=== PATIENT | female | born 1965 | race Caucasian/White ===

== ENCOUNTER 2016-12-05 16:04 | Emergency (ER) | payer BC ==
--- NOTE | 2016-12-05 16:56 | ED.ADGEN ---
Past Medical History Past Medical History: GERD Past Surgical History: Tonsillectomy Alcohol Use: Occasionally Drug Use: None Adult General Chief Complaint Chief Complaint: DIZZY/LIGHT HEADED HPI HPI Patient is a 51 year old female presents emergency department with sudden onset dizziness one hour prior to arrival. Patient reports that the symptoms are worse when she moves her head and essentially resolved when she holds still. She denies any nausea or vomiting. Denies any chest pain or headache. Denies any visual starts. Patient states that she did notice some "tingling" and bilateral hands and in her face shortly after this started. Patient denies any other past medical history. Review of Systems Review of Systems Constitutional: Denies fever or chills. [] Eyes: Denies change in visual acuity. [] HENT: Denies nasal congestion or sore throat. [] Respiratory: Denies cough or shortness of breath. [] Cardiovascular: Denies chest pain or edema. [] GI: Denies abdominal pain, nausea, vomiting, bloody stools or diarrhea. [] : Denies dysuria. [] Musculoskeletal: Denies back pain or joint pain. [] Integument: Denies rash. [] Neurologic: Denies headache, focal weakness or sensory changes. [] Endocrine: Denies polyuria or polydipsia. [] Lymphatic: Denies swollen glands. [] Psychiatric: Denies depression or anxiety. [] Current Medications Current Medications Current Medications Medications (Trade) Dose Ordered Sig/Jsohua Start Time Stop Time Status Last Admin Dose Admin Meclizine HCl (Antivert) 25 mg 1X ONCE 12/05/16 17:15 12/05/16 17:16 DC 12/05/16 17:20 25 MG Sodium Chloride (Iv Sodium Chloride 0.9% 1000ml Bag) 1,000 ml @ 1,000 mls/hr Q1H 12/05/16 17:30 12/05/16 18:29 12/05/16 17:20 1,000 MLS/HR Allergies Allergies Allergies Coded Allergies Type Severity Reaction Last Updated Verified No Known Drug Allergies 12/05/16 No Physical Exam Physical Exam Constitutional: Well developed, well nourished, no acute distress, non-toxic appearance. [] HENT: Normocephalic, atraumatic, bilateral external ears normal, oropharynx moist, no oral exudates, nose normal. [] Eyes: PERRLA, EOMI, conjunctiva normal, no discharge. [] Neck: Normal range of motion, no tenderness, supple, no stridor. [] Cardiovascular:Heart rate regular rhythm, no murmur [] Lungs & Thorax: Bilateral breath sounds clear to auscultation [] Abdomen: Bowel sounds normal, soft, no tenderness, no masses, no pulsatile masses. [] Skin: Warm, dry, no erythema, no rash. [] Back: No tenderness, no CVA tenderness. [] Extremities: No tenderness, no cyanosis, no clubbing, ROM intact, no edema. [] Neurologic: Alert and oriented X 3, normal motor function, normal sensory function, no focal deficits noted. [] Psychologic: Affect normal, judgement normal, mood normal. [] Current Patient Data Vital Signs Vital Signs Date Time Temp Pulse Resp B/P Pulse Ox O2 Delivery O2 Flow Rate FiO2 12/05/16 17:27 119/76 Room Air 12/05/16 16:52 60 13 98 12/05/16 16:09 97.9 97.9 Lab Values Laboratory Tests Test 12/05/16 16:45 12/05/16 17:10 Glucose (Fingerstick) 84mg/dL (70-99) White Blood Count 6.1x10^3/uL (4.0-11.0) Red Blood Count 4.76x10^6/uL (3.50-5.40) Hemoglobin 13.8g/dL (12.0-15.5) Hematocrit 41.1% (36.0-47.0) Mean Corpuscular Volume 86fL (79-100) Mean Corpuscular Hemoglobin 29pg (25-35) Mean Corpuscular Hemoglobin Concent 34g/dL (31-37) Red Cell Distribution Width 13.5% (11.5-14.5) Platelet Count 291x10^3/uL (140-400) Neutrophils (%) (Auto) 53% (31-73) Lymphocytes (%) (Auto) 34% (24-48) Monocytes (%) (Auto) 10% (0-9) H Eosinophils (%) (Auto) 3% (0-3) Basophils (%) (Auto) 1% (0-3) Neutrophils # (Auto) 3.2x10^3uL (1.8-7.7) Lymphocytes # (Auto) 2.1x10^3/uL (1.0-4.8) Monocytes # (Auto) 0.6x10^3/uL (0.0-1.1) Eosinophils # (Auto) 0.2x10^3/uL (0.0-0.7) Basophils # (Auto) 0.0x10^3/uL (0.0-0.2) Urine Collection Type Unknown Urine Color Straw Urine Clarity Clear Urine pH 6.5 Urine Specific [place] <=1.005 Urine Protein Negativemg/dL (NEG-TRACE) Urine Glucose (UA) Negativemg/dL (NEG) Urine Ketones (Stick) Negativemg/dL (NEG) Urine Blood Negative (NEG) Urine Nitrite Negative (NEG) Urine Bilirubin Negative (NEG) Urine Urobilinogen Dipstick 0.2mg/dL (0.2 mg/dL) Urine Leukocyte Esterase Small (NEG) Urine RBC 0/HPF (0-2) Urine WBC Occ/HPF (0-4) Urine Squamous Epithelial Cells Many/LPF Urine Bacteria Few/HPF (0-FEW) Sodium Level 142mmol/L (136-145) Potassium Level 4.0mmol/L (3.5-5.1) Chloride Level 106mmol/L (98-107) Carbon Dioxide Level 28mmol/L (21-32) Anion Gap 8 (6-14) Blood Urea Nitrogen 13mg/dL (7-20) Creatinine 0.8mg/dL (0.6-1.0) Estimated GFR (Cockcroft-Gault) 75.3 Glucose Level 91mg/dL (70-99) Calcium Level 9.1mg/dL (8.5-10.1) Troponin I Quantitative < 0.017ng/mL (0.000-0.055) Urine Opiates Screen Neg (NEG) Urine Methadone Screen Neg (NEG) Urine Barbiturates Neg (NEG) Urine Phencyclidine Screen Neg (NEG) Urine Amphetamine/Methamphetamine Neg (NEG) Urine Benzodiazepines Screen Neg (NEG) Urine Cocaine Screen Neg (NEG) Urine Cannabinoids Screen Neg (NEG) Urine Ethyl Alcohol Neg (NEG) Laboratory Tests 12/05/16 17:10 Laboratory Tests 12/05/16 17:10 EKG EKG EKG interpreted by me, normal sinus rhythm, 60 beats per minute, no ST segment elevation, normal axis. [] Radiology/Procedures Radiology/Procedures Chest x-ray interpreted by me, no acute cardiopulmonary process. PROCEDURE CT brain without contrast HISTORY DIZZINESS
NO HX OR PRIORS dizziness, fingers tingling TECHNIQUE Axial CT images were obtained through the brain without contrast COMPARISON None FINDINGS There is no intracranial hemorrhage or subdural hematoma. Ventricles are normal in size. There is mild atrophy. There is no mass effect or shift of the midline. An acute CVA is not identified. IMPRESSION 1. No intracranial hemorrhage or mass or acute finding noted. Electronically signed by: Justice Ordonez MD (Dec 05, 2016 17:36:25) DICTATED and SIGNED BY: JUSTICE ORDONEZ MD DATE: 12/05/16 1736 CC: LISA DICK MD; NO PCP ~ [] Course & Med Decision Making Course & Med Decision Making Pertinent Labs and Imaging studies reviewed. (See chart for details) The patient feels better after IV fluids and meclizine. Her workup is reassuring. She is being discharged home with a prescription for meclizine, follow-up instructions, supportive care, and return precautions. [] Dragon Disclaimer Dragon Disclaimer This electronic medical record was generated, in whole or in part, using a voice recognition dictation system. LISA DICK MD Dec 05, 2016 16:56
[2016-12-05] MEDS ORDERED: MECLIZINE HCL 12.5 MG TABLET. PO ONE (17:15)
[2016-12-05 17:24] LABS: BASO % 1 % (0-3); EOS % 3 % (0-3); HEMATOCRIT 41.1 % (36.0-47.0); HEMOGLOBIN 13.8 g/dL (12.0-15.5); LYMPH # 2.1 x10^3/uL (1.0-4.8); LYMPH % 34 % (24-48); MEAN CORPUSCULAR HEMOGLOBIN 29 pg (25-35); MEAN CORPUSCULAR HGB CONC 34 g/dL (31-37); MEAN CORPUSCULAR VOLUME 86 fL (79-100); MONO % 10 % (0-9); NEUT % 53 % (31-73); PLATELET COUNT 291 x10^3/uL (140-400); RED BLOOD COUNT 4.76 x10^6/uL (3.50-5.40); RED CELL DISTRIBUTION WIDTH 13.5 % (11.5-14.5); WHITE BLOOD COUNT 6.1 x10^3/uL (4.0-11.0)
[2016-12-05 17:25] LABS: BILIRUBIN,URINE NEGATIVE (NEG); GLUCOSE,URINE NEGATIVE (NEG); NITRITE,URINE NEGATIVE (NEG); PH,URINE 6.5; PROTEIN,URINE NEGATIVE (NEG-TRACE); UROBILINOGEN,URINE 0.2 mg/dL (0.2 mg/dL)
[2016-12-05] MEDS ORDERED: IV NORMAL SALINE 1000ML BAG 1,000 ML IV SCH (17:30)
[2016-12-05 17:32] LABS: BACTERIA,URINE FEW /HPF (0-FEW); RBC,URINE 0 /HPF (0-2); WBC,URINE OCC /HPF (0-4)
[2016-12-05 17:33] LABS: SQUAMOUS EPITHELIAL CELL,UR MANY /LPF
[2016-12-05 17:35] LABS: CALCIUM 9.1 mg/dL (8.5-10.1); CREATININE 0.8 mg/dL (0.6-1.0); GFR 75.3
--- NOTE | 2016-12-05 17:37 | RAD ---
PROCEDURE CT brain without contrast HISTORY DIZZINESS
NO HX OR PRIORS dizziness, fingers tingling TECHNIQUE Axial CT images were obtained through the brain without contrast COMPARISON None FINDINGS There is no intracranial hemorrhage or subdural hematoma. Ventricles are normal in size. There is mild atrophy. There is no mass effect or shift of the midline. An acute CVA is not identified. IMPRESSION 1. No intracranial hemorrhage or mass or acute finding noted. Electronically signed by: Pedro Luis Nunez MD (Dec 05, 2016 17:36:25)
[2016-12-05 17:40] LABS: BARBITURATES NEG (NEG); BENZODIAZEPINES NEG (NEG); CANNABINOIDS NEG (NEG); COCAINE NEG (NEG); METHADONE NEG (NEG); OPIATES NEG (NEG); PHENCYCLIDINE NEG (NEG)
[2016-12-05 17:41] LABS: ETHANOL, URINE NEG (NEG)
[2016-12-05] MEDS ORDERED: MECL25TA3 PO (17:51)
[2016-12-05 18:09] VITALS: BP 105/75
--- NOTE | 2016-12-06 09:00 | RAD ---
Indication: Dizziness Technique: Upright portable chest radiograph was obtained. No comparison is available. Findings: The lungs are clear. The cardiopulmonary silhouette is within normal limits. The bony structures are intact. Leads overlie the patient. Impression: No active pulmonary disease.
--- NOTE | 2016-12-06 11:10 | EKG ---
[facility] [address] [place] [id number] Test Date: 2016-12-05 Test Time: 16:26:14 Pat Name: MATT COLEY Department: Room: Gender: F Resident Manager: : 1965 Requested By: LISA DICK Order Number: [id number] Reading MD: Josey Hatfield Measurements Intervals [place] Rate: 62 P: 0 [place]: 146 QRS: 46 QRSD: 76 T: 30 QT: 404 QTc: 412 Interpretive Statements SINUS RHYTHM NORMAL ECG RI6.01 No previous ECG available for comparison Electronically Signed On 12-06-2016 15:13:52 CDT by Josey Hatfield
== END 2016-12-05 18:33 | disposition home or self-care (01) ==
LOC: ER 16:04
DX: R42 Dizziness and giddiness (principal); K21.9 Gastro-esophageal reflux disease without esophagitis; R20.2 Paresthesia of skin
CPT/HCPCS: 36415; 70450; 71010; 80048; 81001; 82947; 84484; 85027; 87086; 93005; 96360; 99285; G0481; J7030; J8597